=== PATIENT | female | born 1945 | race Caucasian/White ===

== ENCOUNTER → 2018-02-24 | Outpatient (CLI) | payer MEDICARE, OTHER | LOC: M.MRI 17:12 | DX: M51.16 Intervertebral disc disorders with radiculopathy, lumbar region (principal); M47.896 Other spondylosis, lumbar region; M48.061 Spinal stenosis, lumbar region without neurogenic claudication; M47.26 Other spondylosis with radiculopathy, lumbar region; M47.897 Other spondylosis, lumbosacral region ==

== ENCOUNTER → 2019-01-01 | Outpatient (CLI) | payer MEDICARE, OTHER ==
--- NOTE | 2019-01-01 17:53 | CARDNUC ---
[place] [address] CARDIAC NUCLEAR IMAGING REPORT Name: HUONG WALLER Room: [facility]#: [id number] Admission: 01/01/19 Attend Phys: Long Calhoun, Discharge: Date of : 49 Date of Service: 01/01/19 1752 Report #: [id number] THIS REPORT FOR: //name// APPROVED REPORT Imaging Protocol: Stress Tc-99m/Rest Tc-99m 1 day Study performed: 01/01/2019 07:45:00 Indication: Chest pain Patient Location: Out-Patient Ht: 4 ft 11 in Wt: 131 lbs BSA: 1.54 m2 HR: 62 bpm BP: 175/80 mmHg BMI: 26.45 Medical History Medical History: Hyperlipidemia, HTN, PVD Medications: Aspirin, Metoprolol, Losartan Allergies: Memantine Cardiac Risk Factors: Age, HTN, Hyperlipidemia Resting Data Rest SPECT myocardial perfusion imaging was performed in supine position 30 minutes following the intravenous injection of 10.4 mCi of Tc-99m Sestamibi. Time of rest injection: 8:10 The images were gated to evaluate regional wall motion and calculate left ventricular ejection fraction. Administration Route: IV Pharmacologic Stress Pharmacologic stress test was performed by injecting Regadenoson 0.4 mg IV push over 10-15 seconds immediately followed by the intravenous injection of 36.0 mCi of Tc-99m Sestamibi. Time of stress injection: 10:10 Administration Route: IV Heart Rate at time of stress injection: 106 bpm. Gated Stress SPECT was performed 45 minutes after stress injection. The images were gated to evaluate regional wall motion and calculate left ventricular ejection fraction. Stress Test Details Stress Test: Pharmacologic stress testing performed using 0.4 mg of regadenoson per 5 mL given IV over [address] [place] [address] CARDIAC NUCLEAR IMAGING REPORT Name: HUONG WALLER Room: [facility]#: [id number] Admission: 01/01/19 Attend Phys: Long Calhoun, Discharge: Date of : 49 Date of Service: 01/01/19 1752 Report #: [id number] HR Max Heart Rate (APMHR): 149 bpm Target HR (85% APMHR): 126 bpm BP ECG Resting ECG: Sinus Rhythm Stress ECG: Sinus Tachycardia ST Change: diffuse T-wave inversion without ST segment deviation Arrhythmia: None Recovery ECG: Sinus Rhythm Recovery ST Change: None Recovery Arrhythmia: None Clinical Reason for Termination: Completed protocol The patient tolerated Lexiscan infusion without significant symptoms. Stress ECG Conclusion The baseline 12-lead EKG shows sinus rhythm without significant ST or T wave abnormalities. 80s obtained immediately during and after Lexiscan infusion showed diffuse T-wave inversion without significant ST segment change. T-wave inversion resolved in recovery. There were no stress-induced arrhythmias. Study Quality Study: Good Artifact: No artifact Study Data At rest, the left ventricular ejection fraction was 76%.. Post stress, the left ventricular ejection was 74%.. TID = 1.07. Perfusion Normal left ventricular perfusion. Wall Motion Normal left ventricular wall motion. Nuclear Conclusion ECG Findings: equivocal Clinical Findings: negative for ischemia Nuclear Findings: [place] [address] CARDIAC NUCLEAR IMAGING REPORT Name: HUONG WALLER Room: [facility]#: [id number] Admission: 01/01/19 Attend Phys: Long Calhoun, Discharge: Date of : 49 Date of Service: 01/01/191751 Report #: [id number] Exercise Capacity: not assessed Left Ventricular Function: normal Risk Study: low Myocardial perfusion images show no defect to suggest infarct or ischemia. Left ventricular systolic function appears normal on gated studies. This is a low risk study. <Conclusion> The baseline 12-lead EKG shows sinus rhythm without significant ST or T wave abnormalities. 80s obtained immediately during and after Lexiscan infusion showed diffuse T-wave inversion without significant ST segment change. T-wave inversion resolved in recovery. There were no stress-induced arrhythmias. <ELECTRONICALLY SIGNED> By: Long Calhoun MD, FACC 01/01/191751 51 51 Long Calhoun MD, [facility] /INF
== END ==
LOC: M.NUC 12-10 12:28 → M.CRD 12-28 15:00 → M.NUC 12-28 16:00 → M.RAD 07:37 → M.NUC 07:37
DX: Z12.31 Encounter for screening mammogram for malignant neoplasm of breast (principal); I25.10 Atherosclerotic heart disease of native coronary artery without angina pectoris; R07.2 Precordial pain; E78.5 Hyperlipidemia, unspecified; I10 Essential (primary) hypertension; I73.9 Peripheral vascular disease, unspecified

== ENCOUNTER 2019-03-25 10:30 | Emergency (ER) | payer MEDICARE, OTHER ==
[~2019-03-25] VITALS: Ht 157.5 cm; Wt 62.1 kg
[2019-03-25 10:44] LABS: ABSOLUTE BASOPHILS 0.1 thou/uL (0.0-0.2); ABSOLUTE EOSINOPHILS 0.1 thou/uL (0.0-0.7); ABSOLUTE LYMPHOCYTES 1.9 thou/uL (0.8-5.3); ABSOLUTE MONOCYTES 0.9 thou/uL (0.0-1.2); ABSOLUTE NEUTROPHILS 8.3 thou/uL (1.6-8.1); EOSINOPHILS 0.7 %; HEMATOCRIT 36.7 % (37.0-47.0); HEMOGLOBIN 12.4 gm/dL (12.0-15.0); MCH 29.5 pg (26.0-34.0); MCHC 33.8 g/dL (28.0-37.0); MCV 87.1 fL (80.0-100.0); MONOCYTES 7.9 %; MPV 7.3 fl. (7.2-11.1); NUCLEATED RBCS 0 /100WBC; PLATELET COUNT* 251 thou/uL (150-400); POLYS 73.4 %; RBC 4.21 mil/uL (4.20-5.00); RDW-CV 12.6 % (10.5-14.5); WBC 11.4 thou/uL (4.0-11.0)
[2019-03-25] MEDS ORDERED: CRESTOR40 MG PO (10:49)
[2019-03-25] MEDS ORDERED: OSTEO BI-FLEX1 EAC1 PO (10:50)
[2019-03-25] MEDS ORDERED: LOSARTAN POTAS100 MG PO (10:50)
[2019-03-25] MEDS ORDERED: ASPIRIN EC325 M1 PO (10:50)
[2019-03-25] MEDS ORDERED: METOPROLOL TART25 MG PO (10:50)
[2019-03-25] MEDS ORDERED: VITAMIN D32000 UNIT PO (10:50)
[2019-03-25] MEDS ORDERED: MEGARED OMEGA-1 EAC1 PO (10:51)
[2019-03-25] MEDS ORDERED: ONE-DAILY MULT1 EAC1 PO (10:51)
[2019-03-25] MEDS ORDERED: CINNAMON500 MG PO (10:51)
[2019-03-25] MEDS ORDERED: GINKGO BILOBA500 MG PO (10:51)
[2019-03-25] MEDS ORDERED: COD LIVER OIL1 EAC4 PO (10:52)
[2019-03-25] MEDS ORDERED: DIGESTIVE ENZY1 EAC1 PO (10:52)
[2019-03-25] MEDS ORDERED: GARLIC1 EACH PO (10:52)
[2019-03-25] MEDS ORDERED: K-DUR 20 MEQ T20 MEQ PO (10:52)
[2019-03-25] MEDS ORDERED: VISION VITAMIN1 EACH PO (10:53)
[2019-03-25] MEDS ORDERED: COQ-1030 MG PO (10:53)
[2019-03-25] MEDS ORDERED: TURMERIC500 M2 PO (10:53)
[2019-03-25 10:54] LABS: CALCIUM 9.5 mg/dL (8.5-10.1); CREATININE 0.8 mg/dL (0.6-1.3)
[2019-03-25] MEDS ORDERED: NAMENDA 10 MG T10 MG PO (10:54)
[2019-03-25 10:57] LABS: PROTIME 10.2 Seconds (9.20-11.50)
[2019-03-25 11:07] LABS: ALBUMIN 3.8 g/dL (3.4-5.0); CK-MB MASS 2.2 ng/mL (<0.5-3.6); MAGNESIUM 1.8 mg/dL (1.8-2.4); TOTAL BILIRUBIN 0.4 mg/dL (<0.1-1.0); TOTAL PROTEIN 7.5 g/dL (6.4-8.2)
[2019-03-25] MEDS ORDERED: NAPROSYN500 MG PO (14:44)
[2019-03-25 14:55] VITALS: BP 124/55
--- NOTE | 2019-03-25 16:10 | EKG ---
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
== END 2019-03-25 15:00 | disposition home or self-care (01) ==
LOC: M.ERS 10:30
PROVIDERS: Emergency Medicine
DX: M77.9 Enthesopathy, unspecified (principal); L53.9 Erythematous condition, unspecified